=== PATIENT | female | born 1940 | race African-American/Black ===

== ENCOUNTER → 2017-11-08 | Outpatient (CLI) | payer MEDICARE, OTHER ==
--- NOTE | 2017-11-08 09:30 | US ---
EXAMINATION TYPE: US kidneys/renal and bladder DATE OF EXAM: 11/08/2017 COMPARISON: Ultrasound 12/15/[address] 06/09/2016 CLINICAL HISTORY: 77-year-old female R31.0 GROSS HEMATURIA. TECHNIQUE: Multiple sonographic images of the kidneys and bladder are obtained. FINDINGS: Right Kidney: 8.7 x 3.8 x 4.2 cm without hydronephrosis. There is a small 8 mm upper pole cortical c yst some internal low-level echoes most likely artifactual. Finding was seen back on the 06/09/2016 CT . Left Kidney: 7.8 x 3.4 x 4.2cm without hydronephrosis. There is a rounded 2.4 x 2.1 x 2.3 cm solid ar ea at the mid pole most likely representing a dromedary hump. A short interval three-month follow-up can be performed. Bladder: No gross abnormality. No significant post void residual bladder volume. Post Void Residual Volume: 1.5 mL Bilateral Jets seen: Yes IMPRESSION: 1. No hydronephrosis. 2. A tiny 8mm upper pole cortical cyst on the right. 3. Rounded 2.4 cm solid area at the left midpole. This is suspected to represent a dromedary hump rat her than a mass. A short interval three-month follow-up ultrasound can be performed. 4. No urinary retention.
== END | disposition home or self-care (01) ==
LOC: RADUSWWP 08:35
PROVIDERS: ATTEND Family Medicine
DX: R31.0 Gross hematuria (principal); Z88.1 Allergy status to other antibiotic agents
CPT/HCPCS: 76770

== ENCOUNTER 2021-05-20 17:17 | Inpatient (IN) | payer MEDICARE ==
--- NOTE | 2021-05-20 17:40 | ED ---
General Adult HPI - General Chief complaint: Neuro Symptoms/Deficit Stated complaint: AMS Time Seen by Provider: 05/20/21 17:19 Source: EMS, RN notes reviewed Mode of arrival: EMS - History of Present Illness Initial comments: Dictation was produced using [employer] dictation software. please excuse any grammatical, word or spelling errors. Chief Complaint: 80-year-old female with past medical history of stroke, COPD dementia presents emergency department for altered mental status. She was transferred from [facility] History of Present Illness: Patient is a 80-year-old female she was transferred from [facility] for hemoglobin of 3.[address] showing acute versus subacute left MCA infarct. Patient was initially seen at [facility] for altered m ental status. She is found have a hemoglobin of 3.7.. Patient allegedly has history of anemia. Patient unable to provide history of present illness at this time. Transferred documentation was reviewed. She also had a computed tomography scan of the head showing acute left watershed infarct. Patient has allegedly been altered for several weeks. She only received a 500 mL bolus at [facility]. Patient unable to provide HPI at this time. According to ER doctor at [facility] patient has been altered for several days. The ROS documented in this emergency department record has been reviewed and confirmed by me. Those systems with pertinent positive or negative responses have been documented in the HPI. All other systems are other negative and/or noncontributory. PHYSICAL EXAM: General Impression: Alert and oriented x1/4, not in acute distress HEENT: Normocephalic atraumatic, extra-ocular movements intact, pupils equal and reactive to light bilaterally, dry mucous membranes. Cardiovascular: Heart regular rate and rhythm Chest: no retractions, no tachypnea Abdomen: abdomen soft, non-tender, non-distended, no organomegaly Musculoskeletal: Pulses present and equal in all extremities, no peripheral edema Motor: no focal deficits noted Neurological: CN II-XII grossly intact, last paralysis of the right upper extremity, aphasic Skin: Intact with no visualized rashes Psych: Normal affect and mood ED course: 80-year-old female transferred [facility] for abnormal CT showing acute infarct of the left MCA territory and hemoglobin 3.2. Stool occult blood was negative. Patient had a sodium of 150. Vital signs upon arrival are within acceptable limits. Neurology on consult was contacted. Discussed patient case with Dr. Andrew Clark who requests that repeat imaging referral form. He requests that CT be reordered and CT angios the head and neck. He does not recommend providing aspirin given that her hemoglobin is 3.2. HPI from [facility] done by Dr. Mari was reviewed. Patient is allegedly at home and has been more lethargic than usual. She's been seen to be much more sleepy. Repeat labs obtained hemoglobin 3.6. Platelets normal. MCV is 62.8. Metabolic panel is within acceptable limits. CT brain and CT angios the head and neck was obtained. CT brain here in our facility showed hypoattenuation of left frontal lobe which suggests acute on chronic infarct. CT angiogram of the head and neck was obtained showing acute left ICA occlusion. Case was discussed with on-call neuro neurovascular Dr Grayson who reviewed the films recommended Plavix and Lipitor. He does not recommend aspirin administration due to low hemoglobin. Dr. Grayson does not recommend outpatient transfer at this time. Case discussed with Dr. Mello who is willing to accept patient came to the ICU. - Related Data Home Medications Medication Instructions Recorded Confirmed Aspirin 81 mg PO DAILY 03/17/14 05/20/21 HYDROcodone/APAP 10-325MG [[place] 1 tab PO Q8H PRN 01/10/15 05/20/21 10-325] Cholecalciferol [Vitamin D3 (25 125 mcg PO DAILY 06/15/15 05/20/21 Mcg = 1000 Iu)] Omeprazole [PriLOSEC] 40 mg PO HS 06/15/15 05/20/21 Atorvastatin Calcium [Lipitor] 10 mg PO HS 05/20/21 05/20/21 Citalopram Hydrobromide [CeleXA] 40 mg PO DAILY 05/20/21 05/20/21 Cyanocobalamin (Vitamin B-12) 1,000 mcg PO DAILY 05/20/21 05/20/21 [Vitamin B-12] Gabapentin 600 mg PO TID 05/20/21 05/20/21 Glycopyrrolate/Formoterol Fum 2 puff INHALATION RT-BID 05/20/21 05/20/21 [Bevespi Aerosphere Inhaler] Metoprolol Succinate [Toprol XL] 25 mg PO BID 05/20/21 05/20/21 Mirtazapine [Remeron] 15 mg PO HS 05/20/21 05/20/21 Naloxone HCl [Narcan] 4 mg NASAL ONCE PRN 05/20/21 05/20/21 Allergies Allergy/AdvReac Type Severity Reaction Status Date / Time amoxicillin [Amoxicillin] Allergy Itching Verified 05/20/21 18:33 cephalexin monohydrate Allergy Itching Verified 05/20/21 18:33 [From Keflex] codeine Allergy Itching Verified 05/20/21 18:33 Penicillins Allergy Itching Verified 05/20/21 18:33 Review of Systems ROS Statement: Those systems with pertinent positive or pertinent negative responses have been documented in the HPI. ROS Other: All systems not noted in ROS Statement are negative. Past Medical History Past Medical History: Chest Pain / Angina, COPD, GERD/Reflux, Hyperlipidemia, Hypertension, Osteoarthritis (OA) Additional Past Medical History / Comment(s): OTHER HX: hx fx pelvis, migraines , CONSTIPATED,SCIATICA, POOR CIRCULATION TO LOWER LEGS History of Any Multi-Drug Resistant Organisms: None Reported Past Surgical History: Breast Surgery Additional Past Surgical History / Comment(s): Colonoscopy,CYST REMOVED FROM LT BREAST, RT KNEE ARTHROSCOPY, LASIK EYE SX Past Anesthesia/Blood Transfusion Reactions: No Reported Reaction Additional Past Anesthesia/Blood Transfusion Reaction / Comment(s): had problem with left leg after last colonoscopy and could not walk for a few days after ( hx pelvis fx) Past Psychological History: No Psychological Hx Reported Past Alcohol Use History: Occasional Past Drug Use History: Marijuana - Past Family History Mother Family Medical History: No Reported History Additional Family Medical History / Comment(s): CARDIAC PROBLEMS Father History Unknown: Yes Additional Family Medical History / Comment(s): DURING TESTING TO FIND OUT IF HE HAD CANCER Course Vital Signs 05/20/21 05/20/21 05/20/21 17:23 18:23 19:42 Temperature 97.8 F 98.1 F Pulse Rate 82 79 75 Respiratory 18 18 16 Rate Blood Pressure 147/86 117/61 140/70 O2 Sat by Pulse 98 98 95 Oximetry 05/20/21 19:52 Temperature 97.9 F Pulse Rate 83 Respiratory 16 Rate Blood Pressure 133/70 O2 Sat by Pulse 100 Oximetry Medical Decision Making - Lab Data Result diagrams: 05/20/21 18:20 05/20/21 18:20 Lab Results 05/20/21 05/20/21 05/20/21 Range/Units 18:00 18:18 18:20 WBC 8.6 (3.8-10.6) k/uL RBC 2.33 L (3.80-5.40) m/uL Hgb 3.6 L* (11.4-16.0) gm/dL Hct 14.6 L* (34.0-46.0) % MCV 62.8 L (80.0-100.0) fL MCH 15.5 L (25.0-35.0) pg MCHC 24.7 L (31.0-37.0) g/dL RDW 20.5 H (11.5-15.5) % Plt Count 332 (150-450) k/uL MPV 11.4 Hypochromasia Marked Anisocytosis Moderate Microcytosis Marked Sodium (137-145) mmol/L Potassium (3.5-5.1) mmol/L Chloride (98-107) mmol/L Carbon Dioxide (22-30) mmol/L Anion Gap mmol/L BUN (7-17) mg/dL Creatinine (0.52-1.04) mg/dL Est GFR (CKD-EPI)AfAm (>60 ml/min/1.73 sqM) Est GFR (CKD-EPI)NonAf (>60 ml/min/1.73 sqM) Glucose (74-99) mg/dL Calcium (8.4-10.2) mg/dL Blood Type O Positive Blood Type Confirm O Positive Blood Type Recheck No Previous Record Bld Type Recheck Status CABO Indicated Antibody Screen NEGATIVE Crossmatch See Detail Spec Expiration Date 05/23/2021 - 229905/20/21 Range/Units 18:20 WBC (3.8-10.6) k/uL RBC (3.80-5.40) m/uL Hgb (11.4-16.0) gm/dL Hct (34.0-46.0) % MCV (80.0-100.0) fL MCH (25.0-35.0) pg MCHC (31.0-37.0) g/dL RDW (11.5-15.5) % Plt Count (150-450) k/uL MPV Hypochromasia Anisocytosis Microcytosis Sodium 144 (137-145) mmol/L Potassium 4.2 (3.5-5.1) mmol/L Chloride 107 (98-107) mmol/L Carbon Dioxide 34 H (22-30) mmol/L Anion Gap 3 mmol/L BUN 8 (7-17) mg/dL Creatinine 0.47 L (0.52-1.04) mg/dL Est GFR (CKD-EPI)AfAm >90 (>60 ml/min/1.73 sqM) Est GFR (CKD-EPI)NonAf >90 (>60 ml/min/1.73 sqM) Glucose 94 (74-99) mg/dL Calcium 8.2 L (8.4-10.2) mg/dL Blood Type Blood Type Confirm Blood Type Recheck Bld Type Recheck Status Antibody Screen Crossmatch Spec Expiration Date Critical Care Time Critical Care Time: Yes Total Critical Care Time: 33 Disposition Clinical Impression: Cerebrovascular accident (CVA), Anemia Disposition: ADMITTED IP TO THIS [facility] Condition: Critical Referrals: Rommel Neal MD [Primary Care Provider] - 1-2 days
[2021-05-20 18:26] LABS: Anisocytosis Moderate; Hypochromasia Marked; MCH 15.5 pg (25.0-35.0); MCHC 24.7 g/dL (31.0-37.0); MCV 62.8 fL (80.0-100.0); Mean Platelet Volume 11.4; Microcytosis Marked; Platelet Count 332 k/uL (150-450); RBC 2.33 m/uL (3.80-5.40); RDW 20.5 % (11.5-15.5); WBC 8.6 k/uL (3.8-10.6)
[2021-05-20 18:36] LABS: HGB 3.6 gm/dL (11.4-16.0)
[2021-05-20 18:37] LABS: HCT 14.6 % (34.0-46.0)
[2021-05-20 18:38] LABS: African American GFR (CKD) >90 (>60 ml/min/1.73 sqM); Anion Gap 3 mmol/L; Blood Urea Nitrogen 8 mg/dL (7-17); Calcium 8.2 mg/dL (8.4-10.2); Carbon Dioxide 34 mmol/L (22-30); Chloride 107 mmol/L (98-107); Glucose 94 mg/dL (74-99); Non-African American GFR(CKD) >90 (>60 ml/min/1.73 sqM); Potassium 4.2 mmol/L (3.5-5.1); Sodium 144 mmol/L (137-145)
--- NOTE | 2021-05-20 19:10 | CT ---
EXAM: CT brain wo con CLINICAL HISTORY: Acute stroke. COMPARISON: None TECHNIQUE: Contiguous axial noncontrast images of the brain were obtained. Coronal and sagittal refor mats were generated and reviewed. Automated dose control was used for this exam. FINDINGS: There is moderate hypoattenuating area within the left frontal lobe and less pronounced in the left p arieto-occipital lobe. There is no acute intracranial hemorrhage, midline shift or hydrocephalus. The re is moderate white matter disease and mild parenchymal volume loss. Ventricular size and configuration is within normal limits for degree of parenchymal volume. The paranasal sinuses are clear. The mastoid air cells are clear. No evidence for calvarial fracture. IMPRESSION: Moderate hypoattenuating area in the left frontal lobe and less pronounced in the left parieto-occipi samuel lobe. Findings are concerning for acute infarct in the appropriate clinical setting. Acute on chr onic infarct cannot be excluded due to absence of prior study for comparison. No evidence of intracranial hemorrhage. Findings were reported to the caring physician by me at time of dictation.
--- NOTE | 2021-05-20 19:18 | CT ---
EXAMINATION TYPE: CT angio head neck DATE OF EXAM: 05/20/2021 HISTORY: Patient poor historian. COMPARISON: None available. CT DLP: 1278.3 mGycm. Automated Exposure Control for Dose Reduction was Utilized. TECHNIQUE: CTA scan of the neck is performed with IV Contrast, patient injected with 60 mL of Isovue 370, axial images are obtained, coronal and sagittal reformatted images are reviewed. Three-D recons tructed images are created on an independent workstation and reviewed. FINDINGS: There is moderate atherosclerosis of the aortic arch and carotid bulbs. Otherwise normal three-vessel branching of the aorta. There is occlusion of the left internal carotid artery from the origin throu gh the terminus. There is 50-70% stenosis of the right proximal ICA. The remainder of the ICA and bilateral vertebral arteries are patent. No evidence of aneurysm. There is no evidence of high-grade stenosis, dissection or aneurysm in the intracranial internal aiken tid arteries, anterior, middle and posterior cerebral arteries as well as in the imaged vertebral and basilar arteries. The communicating arteries are unremarkable. IMPRESSION: Occlusion of the left ICA. Moderate to severe stenosis of the right proximal ICA. No thrombosis or significant stenosis of the intracranial arteries. Findings reported to caring physician by me at time of dictation. NASCET criteria was used in interpretation of this exam?
[2021-05-20] MEDS ORDERED: NALOXONE 0.4 MG/ML 1 ML VIAL IV PRN (19:57)
[2021-05-20] MEDS ORDERED: ATORVASTATIN 40 MG TAB PO STA (20:08)
[2021-05-20] MEDS ORDERED: CLOPIDOGREL 75 MG TAB PO STA (20:08)
--- NOTE | 2021-05-20 23:28 | P.HPIM ---
History of Present Illness H&P Date: 05/20/21 The patient is a 80-year-old female with a PMH of dementia, history of CVA, hypertension, and COPD who was sent in as a transfer from [facility] where she had presented earlier tonight accompanied by her daughter due to altered mental status. The history obtained from the daughter at the bedside since the patient is answering only basic questions with 1-2 word answers. The daughter reports that she initially noticed her mother was not quite herself yesterday night when she would not eat or drink as usual and became very quiet. She reports that her mother was then far less interactive throughout the day today and appeared to be lethargic and only wanting to sleep. She further reported that her mother has not been using her right arm and legs appropriately over the past 1 month, and is now unable to stand as her leg "gives out". She denied noticing the patient complain of anything else. She further denied noticing bloody or black tarry stools. The patient was not able to provide any meaningful history. Patient is only answering basic questions with yes and no answers. When asked if she was in pain or if anything was bothering her, the patient answered no. The patient lives at home with her daughter and is largely bedbound. While at [facility], the patient underwent an extensive evaluation with a CT head without contrast showing findings compatible with an acute left MCA infarct. Laboratory evaluation also revealed a hemoglobin of 3.7, MCV 57.1, fecal occult negative, sodium 150, CO2 39.7, albumin 2.7, troponin less than 0.017, WBC count 7.9, and platelets 300 with UA unremarkable. EKG had revealed sinus rhythm at 85 bpm with a prolonged QTC of 625 ms. Chest x-ray was consistent with COPD and possible underlying atelectasis. She was subsequently transferred to [facility] for neurology evaluation. CT angiogram of the head and neck again revealed the occlusion of the left ICA. Neuro retrieval specialist Dr Grayson was consulted by the ED physician. He reviewed the films and recommended Lipitor and Plavix with no aspirin due to the patient's low hemoglobin. He further recommended no TPA and transfer to medical ICU for further management. Review of systems: Pertinent positives and negatives as discussed in HPI, a complete review of sy stems was performed and all other systems are negative. Physical examination: General: non toxic, no distress, appears at stated age, frail Derm: no unusual rashes/lesions no unusual ecchymoses, warm, dry Head: atraumatic, normocephalic, symmetric Eyes: EOMI, no lid lag, anicteric sclera, pupils equal round reactive to light ENT: Nose and ears atraumatic, no thrush, no pharyngeal erythema Neck: No thyromegaly, no cervical lymphadenopathy, trachea midline, supple Mouth: no lip lesion, mucus membranes moist Cardiovascular: S1S2 reg, no murmur, positive posterior tibial pulse bilateral, no edema, capillary refill less than 2 seconds Lungs: CTA bilateral, no rhonchi, no rales , no accessory muscle use Abdominal: soft, nontender to palpation, no guarding, no appreciable organomegaly Ext: Thin extremities, unable to assess fully as patient not following all directions. muscle strength 3 out of 5 in fransisca UEs grossly with patient not moving her legs, no contractures, Neuro: CN II-XI grossly intact Psych: Lethargic, oriented only to self Assessment/plan Acute left MCA infarct -Patient not a candidate for TPA -Neurology consulted -Neuro checks -Lipitor and Plavix for now -Hold aspirin in setting of significant microcytic anemia -Fall precautions -PT consult -Speech and swallow evaluation -Permissive hypertension Severe microcytic anemia -Fecal occult negative at [facility] -Obtain anemia workup -Hematology consult -3 units of PRBCs ordered Chronic conditions: COPD -Continue with home meds DVT prophylaxis -IPCDs The patient is admitted with an anticipated greater than 2 midnight stay for evaluation of acute CVA CODE STATUS: No Code w/ instructions Discussed with: Full Code Anticipated discharge date: 3-[address]: [facility] Past Medical History Past Medical History: Chest Pain / Angina, COPD, GERD/Reflux, Hyperlipidemia, Hypertension, Osteoarthritis (OA) Additional Past Medical History / Comment(s): OTHER HX: hx fx pelvis, migraines , CONSTIPATED,SCIATICA, POOR CIRCULATION TO LOWER LEGS History of Any Multi-Drug Resistant Organisms: None Reported Past Surgical History: Breast Surgery Additional Past Surgical History / Comment(s): Colonoscopy,CYST REMOVED FROM LT BREAST, RT KNEE ARTHROSCOPY, LASIK EYE SX Past Anesthesia/Blood Transfusion Reactions: No Reported Reaction Additional Past Anesthesia/Blood Transfusion Reaction / Comment(s): had problem with left leg after last colonoscopy and could not walk for a few days after ( hx pelvis fx) Past Psychological History: No Psychological Hx Reported Past Alcohol Use History: Occasional Past Drug Use History: Marijuana - Past Family History Mother Family Medical History: No Reported History Additional Family Medical History / Comment(s): CARDIAC PROBLEMS Father History Unknown: Yes Additional Family Medical History / Comment(s): DURING TESTING TO FIND OUT IF HE HAD CANCER Medications and Allergies Home Medications Medication Instructions Recorded Confirmed Type Aspirin 81 mg PO DAILY 03/17/14 05/20/21 History HYDROcodone/APAP 10-325MG [[place] 1 tab PO Q8H PRN 01/10/15 05/20/21 History 10-325] Cholecalciferol [Vitamin D3 (25 125 mcg PO DAILY 06/15/15 05/20/21 History Mcg = 1000 Iu)] Omeprazole [PriLOSEC] 40 mg PO HS 06/15/15 05/20/21 History Atorvastatin Calcium [Lipitor] 10 mg PO HS 05/20/21 05/20/21 History Citalopram Hydrobromide [CeleXA] 40 mg PO DAILY 05/20/21 05/20/21 History Cyanocobalamin (Vitamin B-12) 1,000 mcg PO DAILY 05/20/21 05/20/21 History [Vitamin B-12] Gabapentin 600 mg PO TID 05/20/21 05/20/21 History Glycopyrrolate/Formoterol Fum 2 puff INHALATION RT-BID 05/20/21 05/20/21 History [Bevespi Aerosphere Inhaler] Metoprolol Succinate [Toprol XL] 25 mg PO BID 05/20/21 05/20/21 History Mirtazapine [Remeron] 15 mg PO HS 05/20/21 05/20/21 History Naloxone HCl [Narcan] 4 mg NASAL ONCE PRN 05/20/21 05/20/21 History Allergies Allergy/AdvReac Type Severity Reaction Status Date / Time amoxicillin [Amoxicillin] Allergy Itching Verified 05/20/21 18:33 cephalexin monohydrate Allergy Itching Verified 05/20/21 18:33 [From Keflex] codeine Allergy Itching Verified 05/20/21 18:33 Penicillins Allergy Itching Verified 05/20/21 18:33 Physical Exam Vitals: Vital Signs Temp Pulse Resp BP Pulse Ox 05/20/21 20:22 97.9 F 79 16 135/70 100 05/20/21 20:06 84 16 136/76 100 05/20/21 19:52 97.9 F 83 16 133/70 100 05/20/21 19:42 98.1 F 75 16 140/70 95 05/20/21 18:23 79 18 117/61 98 05/20/21 17:23 97.8 F 82 18 147/86 98 Intake and Output 05/20/21 05/20/21 05/20/21 06:59 14:59 22:59 Intake Total 0 Balance 0 Intake: Blood Product 0 Rc As-1 Unit 0 [id number] Other: Weight 34.246 kg Results CBC & Chem 7: 05/20/21 18:20 05/20/21 18:20 Labs: Abnormal Lab Results - Last 24 Hours (Table) 05/20/21 05/20/21 05/20/21 Range/Units 18:00 18:20 18:20 RBC 2.33 L (3.80-5.40) m/uL Hgb 3.6 L* (11.4-16.0) gm/dL Hct 14.6 L* (34.0-46.0) % MCV 62.8 L (80.0-100.0) fL MCH 15.5 L (25.0-35.0) pg MCHC 24.7 L (31.0-37.0) g/dL RDW 20.5 H (11.5-15.5) % Carbon Dioxide 34 H (22-30) mmol/L Creatinine 0.47 L (0.52-1.04) mg/dL Calcium 8.2 L (8.4-10.2) mg/dL Crossmatch See Detail
[2021-05-21] MEDS: PANTOPRAZOLE 40 MG TABLET PO SCH (07:31)
[2021-05-21 07:41] LABS: Anisocytosis Moderate; HCT 43.1 % (34.0-46.0); Hypochromasia Marked; MCH 25.1 pg (25.0-35.0); MCHC 30.9 g/dL (31.0-37.0); Mean Platelet Volume 10.6; Microcytosis Moderate; Poikilocytosis Marked; RBC 5.31 m/uL (3.80-5.40); RDW 20.7 % (11.5-15.5); WBC 13.6 k/uL (3.8-10.6)
[2021-05-21 07:49] LABS: African American GFR (CKD) >90 (>60 ml/min/1.73 sqM); Anion Gap 6 mmol/L; Blood Urea Nitrogen 8 mg/dL (7-17); Carbon Dioxide 33 mmol/L (22-30); Chloride 107 mmol/L (98-107); Glucose 97 mg/dL (74-99); Non-African American GFR(CKD) >90 (>60 ml/min/1.73 sqM); Sodium 146 mmol/L (137-145)
[2021-05-21 08:17] LABS: HGB 13.3 gm/dL (11.4-16.0)
[2021-05-21 08:18] LABS: MCV 81.2 fL (80.0-100.0)
[2021-05-21] MEDS: FORMOTEROL FUMARATE 20 MCG/2 ML NEBU INHALATION SCH ×2 (09:00→20:30)
[2021-05-21] MEDS: IPRATROPIUM 0.5 MG/2.5 ML NEBU INHALATION SCH ×4 (09:00→20:31)
[2021-05-21 09:13] LABS: Anisocytosis Moderate; Basophils # (A) 0.1 k/uL (0-0.2); Basophils % (A) 0 %; Eosinophils % (A) 0 %; HCT 43.8 % (34.0-46.0); HGB 13.6 gm/dL (11.4-16.0); Hypochromasia Marked; Lymphocytes # (A) 1.1 k/uL (1.0-4.8); Lymphocytes % (A) 8 %; MCH 24.8 pg (25.0-35.0); Mean Platelet Volume 9.9; Microcytosis Moderate; Monocytes # (A) 0.7 k/uL (0-1.0); Monocytes % (A) 5 %; Neutrophils # (A) 11.9 k/uL (1.3-7.7); Neutrophils % (A) 85 %; Platelet Count 271 k/uL (150-450); Poikilocytosis Marked; RBC 5.48 m/uL (3.80-5.40); RDW 20.7 % (11.5-15.5)
[2021-05-21 09:22] LABS: Platelet Count 283 k/uL (150-450)
--- NOTE | 2021-05-21 09:25 | CONS ---
CONSULTATION DATE OF CONSULTATION: May 21, 2021. REASON FOR CONSULTATION: Severe symptomatic anemia. HISTORY OF PRESENT ILLNESS: The patient is a 80-year-old female admitted to the hospital with right-sided CVA and severe symptomatic anemia with a hemoglobin of 3.6 g/dL. Most of the history was obtained from the patient's chart as there is no family available at the bedside. She still remains in the ER at this time. Apparently, her daughter noticed her mother to be quite confused yesterday, somewhat lethargic and hence she brought her to the emergency room. Subsequently, she did have a CT of the head without contrast and findings were compatible with acute left MCA infarct. In the ER, she was noted to have labs with a hemoglobin of 3.6 g/dL and MCV at 57 consistent with severe microcytic hypochromic anemia. The patient is extremely confused. As per the nursing staff, there was no evidence of active bleeding. Currently the patient denies any abdominal pain. No nausea, no vomiting. No rectal bleeding or melena. On review of her records, she did have an EGD and an attempted colonoscopy by Dr. Burnett in 2013 followed by a barium enema, which revealed some gastritis and extensive sigmoid diverticulosis and the scope could not be advanced beyond the sigmoid colon and subsequent barium enema was incomplete which once again revealed sigmoid diverticulosis. PAST MEDICAL HISTORY: Her past medical history is significant for hypertension, hyperlipidemia, degenerative joint disease, gastroesophageal reflux disease, COPD, iron deficiency anemia. PAST SURGICAL HISTORY: Attempted colonoscopy and EGD in [address] Burnett, left breast surgery, right knee arthroscopy. SOCIAL HISTORY: No smoking. No alcohol use. FAMILY HISTORY: Mother had some cardiac problems and father had some kind of cancer. MEDICATIONS: Medications at home aspirin, [place], vitamin D3, Prilosec, Lipitor, Celexa, vitamin B12, gabapentin, Remeron, Narcan, Toprol. ALLERGIES: AMOXICILLIN, KEFLEX, CODEINE AND PENICILLIN. REVIEW OF SYSTEMS: Review of systems could not be obtained as patient is extremely confused. PHYSICAL EXAMINATION: She appears comfortable in no apparent distress. Vital signs are stable. Blood pressure is 135/70, pulse is 79, temperature 97.9. HEENT examination unremarkable. Conjunctivae pale. Sclerae anicteric. Oral cavity no lesions. NECK: No JVD or lymph node enlargement. CHEST: Decreased breath sounds bilaterally. HEART is regular rate and rhythm. ABDOMEN was soft. It was nontender, nondistended. Bowel sounds are positive. EXTREMITIES: No pedal edema. NEURO: Right-sided weakness. She is awake, alert to name but not to place or time. LABS: Labs done at the time of admission to the hospital: WBC is 8.6, hemoglobin 3.6, platelets 332, MCV is 62. She received 3 units of PRBC transfusion and repeat hemoglobin is 13.3 g/dL. BUN is 8, creatinine 0.47. IMPRESSION: 1. Severe symptomatic hypochromic microcytic anemia with a hemoglobin of 3.6, consistent with iron deficiency anemia most likely secondary to occult gastrointestinal blood loss. Clinically there is no evidence of active ongoing bleeding. 2. New onset right-sided cerebrovascular accident. CT of the head showing left MCA infarct. 3. Altered mental status. 4. History of hypertension and hyperlipidemia. 5. History of gastroesophageal reflux disease. RECOMMENDATIONS: 1. Agree with PRBC transfusion. 2. Continue with Protonix 40 mg daily. 3. Since there is no evidence of active bleeding and new onset CVA, she can continue with aspirin and Plavix for now. 4. She is not a candidate for any endoscopic intervention at the present time given her pulmonary status and once this is optimized, we will consider endoscopic intervention in the next few days. 5. No family available at the bedside to discuss the plan. 6. We will follow with you closely. Thank you for this consultation. MMELICEOL / LURDESN: [id number] /
[2021-05-21 10:06] LABS: Polychromasia Present
[2021-05-21] MEDS: CLOPIDOGREL 75 MG TAB PO SCH (10:18)
--- NOTE | 2021-05-21 10:56 | P.PN ---
Subjective Progress Note Date: 05/21/21 Pt is still quite aphasic, but follows commands, and appears to understand what I'm saying. CBC repeated today and returned at 13.1, re-tested and returned again at 13. Initial lab value of 3.2 was likely lab error. Pt did receive 3U PRBCs. Started on ASA, which was previously held due to anemia. Now on ASA, Plavix, Statin appropriately. Objective - Vital Signs Vital signs: Vital Signs Temp 98.0 F 05/21/21 04:55 Pulse 87 05/21/21 10:00 Resp 20 05/21/21 10:00 BP 163/85 05/21/21 10:00 Pulse Ox 99 05/21/21 10:00 Intake & Output 05/20/21 05/21/21 05/21/21 18:59 06:59 18:59 Intake Total 930 Balance 930 Weight 34.246 kg Intake: Blood Product 930 Rc As-1 Unit 310 [id number] Rc As-1 Unit 310 [id number] Rc As-1 Unit 310 [id number] - Exam Gen: awake, cooperative with exam HEENT: normocephalic, atraumatic, good hearing acuity, moist mucous membranes Resp: good air exchange, breathing comfortably with no accessory muscle use CVS: good distal perfusion x 4, GI: soft, NTTP, ND : no SPT, no CVAT, coppola catheter not present MSK: no pitting edema, no clubbing Neuro: expressive aphasia, diminished UE/LE strength on R> L side - Labs CBC & Chem 7: 05/21/21 08:32 05/21/21 07:20 Labs: Abnormal Lab Results - Last 24 Hours (Table) 05/20/21 05/20/21 05/20/21 Range/Units 18:00 18:20 18:20 WBC (3.8-10.6) k/uL RBC 2.33 L (3.80-5.40) m/uL Hgb 3.6 L* (11.4-16.0) gm/dL Hct 14.6 L* (34.0-46.0) % MCV 62.8 L (80.0-100.0) fL MCH 15.5 L (25.0-35.0) pg MCHC 24.7 L (31.0-37.0) g/dL RDW 20.5 H (11.5-15.5) % Neutrophils # (1.3-7.7) k/uL Sodium (137-145) mmol/L Carbon Dioxide 34 H (22-30) mmol/L Creatinine 0.47 L (0.52-1.04) mg/dL Calcium 8.2 L (8.4-10.2) mg/dL Crossmatch See Detail 05/21/21 05/21/21 05/21/21 Range/Units 07:20 07:20 08:32 WBC 13.6 H 14.0 H (3.8-10.6) k/uL RBC 5.48 H (3.80-5.40) m/uL Hgb (11.4-16.0) gm/dL Hct (34.0-46.0) % MCV (80.0-100.0) fL MCH 24.8 L (25.0-35.0) pg MCHC 30.9 L (31.0-37.0) g/dL RDW 20.7 H 20.7 H (11.5-15.5) % Neutrophils # 11.9 H (1.3-7.7) k/uL Sodium 146 H (137-145) mmol/L Carbon Dioxide 33 H (22-30) mmol/L Creatinine 0.40 L (0.52-1.04) mg/dL Calcium (8.4-10.2) mg/dL Crossmatch Assessment and Plan Assessment: Acute left MCA infarct -Patient not a candidate for TPA -Neurology consulted -Neuro checks -ASA, Lipitor and Plavix -Fall precautions -PT/OT consult -MR Brain pending -Echo pending -Speech and swallow evaluation -Permissive hypertension Microcytic anemia which was overestimated due to lab error, s/p 3U PRBC transfusion, now in normal range -Fecal occult negative at [facility] -Obtain anemia workup, pendig -Hematology consulted -GI consulted Chronic conditions: COPD -Continue with home meds DVT prophylaxis -IPCDs The patient is admitted with an anticipated greater than 2 midnight stay for evaluation of acute CVA CODE STATUS: No Code w/ instructions Anticipated discharge date: 3-[address]: [facility]
--- NOTE | 2021-05-21 11:17 | P.CONS ---
History of Present Illness - Reason for Consult Consult date: 05/21/21 anemia Requesting physician: Michael Alarcon - Chief Complaint Altered mentation - History of Present Illness Ms. Streeter is a 80 yo female with multiple comorbidities who is here for altered mentation from [facility]. She presented there for altered mentation. She was transferred here where she had a CT of the head and CT angiogram which confirmed a stroke. CBC here revealed normal WBC and platelets however hemoglobin of 3.6. She was transfused 3 units of blood with repeat hemoglobin 2 at 13. GI was consult it. We were also consulted. She is currently unable to follow commands, moving spontaneously. No family at bedside. Past Medical History Past Medical History: Chest Pain / Angina, COPD, GERD/Reflux, Hyperlipidemia, Hypertension, Osteoarthritis (OA) Additional Past Medical History / Comment(s): OTHER HX: hx fx pelvis, migraines , CONSTIPATED,SCIATICA, POOR CIRCULATION TO LOWER LEGS History of Any Multi-Drug Resistant Organisms: None Reported Past Surgical History: Breast Surgery Additional Past Surgical History / Comment(s): Colonoscopy,CYST REMOVED FROM LT BREAST, RT KNEE ARTHROSCOPY, LASIK EYE SX Past Anesthesia/Blood Transfusion Reactions: No Reported Reaction Additional Past Anesthesia/Blood Transfusion Reaction / Comm: had problem with left leg after last colonoscopy and could not walk for a few days after ( hx pelvis fx) Past Psychological History: No Psychological Hx Reported Past Alcohol Use History: Occasional Past Drug Use History: Marijuana - Past Family History Mother Family Medical History: No Reported History Additional Family Medical History / Comment(s): CARDIAC PROBLEMS Father History Unknown: Yes Additional Family Medical History / Comment(s): DURING TESTING TO FIND OUT IF HE HAD CANCER Medications and Allergies Home Medications Medication Instructions Recorded Confirmed Type Aspirin 81 mg PO DAILY 03/17/14 05/20/21 History HYDROcodone/APAP 10-325MG [Ramey 1 tab PO Q8H PRN 01/10/15 05/20/21 History 10-325] Cholecalciferol [Vitamin D3 (25 125 mcg PO DAILY 06/15/15 05/20/21 History Mcg = 1000 Iu)] Omeprazole [PriLOSEC] 40 mg PO HS 06/15/15 05/20/21 History Atorvastatin Calcium [Lipitor] 10 mg PO HS 05/20/21 05/20/21 History Citalopram Hydrobromide [CeleXA] 40 mg PO DAILY 05/20/21 05/20/21 History Cyanocobalamin (Vitamin B-12) 1,000 mcg PO DAILY 05/20/21 05/20/21 History [Vitamin B-12] Gabapentin 600 mg PO TID 05/20/21 05/20/21 History Glycopyrrolate/Formoterol Fum 2 puff INHALATION RT-BID 05/20/21 05/20/21 History [Bevespi Aerosphere Inhaler] Metoprolol Succinate [Toprol XL] 25 mg PO BID 05/20/21 05/20/21 History Mirtazapine [Remeron] 15 mg PO HS 05/20/21 05/20/21 History Naloxone HCl [Narcan] 4 mg NASAL ONCE PRN 05/20/21 05/20/21 History Allergies Allergy/AdvReac Type Severity Reaction Status Date / Time amoxicillin [Amoxicillin] Allergy Itching Verified 05/20/21 18:33 cephalexin monohydrate Allergy Itching Verified 05/20/21 18:33 [From Keflex] codeine Allergy Itching Verified 05/20/21 18:33 Penicillins Allergy Itching Verified 05/20/21 18:33 Physical Exam Vitals: Vital Signs Temp Pulse Resp BP Pulse Ox 05/21/21 10:00 87 20 163/85 99 05/21/21 09:07 86 23 169/95 100 05/21/21 08:00 87 23 162/103 100 05/21/21 06:21 82 16 161/104 98 05/21/21 05:30 82 16 162/95 100 05/21/21 04:55 98.0 F 76 16 173/96 05/21/21 04:00 77 16 162/100 100 05/21/21 03:08 77 16 164/85 100 05/21/21 02:26 98.3 F 76 16 172/106 97 05/21/21 01:56 98.5 F 79 16 172/84 99 05/21/21 01:46 98.0 F 76 16 160/89 100 05/21/21 01:24 97.9 F 75 16 157/91 100 05/21/21 00:27 79 16 171/89 100 05/20/21 23:22 98.5 F 79 18 165/85 100 05/20/21 22:52 97.7 F 80 16 161/93 100 05/20/21 22:42 97.3 F L 79 16 162/84 100 05/20/21 22:30 97.5 F L 79 16 155/82 100 05/20/21 21:33 90 16 148/76 100 05/20/21 20:22 97.9 F 79 16 135/70 100 05/20/21 20:06 84 16 136/76 100 05/20/21 19:52 97.9 F 83 16 133/70 100 05/20/21 19:42 98.1 F 75 16 140/70 95 05/20/21 18:23 79 18 117/61 98 05/20/21 17:23 97.8 F 82 18 147/86 98 Intake and Output 05/20/21 05/21/21 05/21/21 22:59 06:59 14:59 Intake Total 310 620 Balance 310 620 Intake: Blood Product 310 620 Rc As-1 Unit 0 310 [id number] Rc As-1 Unit 310 [id number] Rc As-1 Unit 310 [id number] Other: Weight 34.246 kg Gen.: No acute distress. HEENT: No scleral icterus. Neck: Supple. Lungs: No respiratory distress. Heart: Regular rate. Abdomen: Diffuse tender with guarding. Difficult exam. MSK: No obvious of her extremity deformities. Neuro: Unable to follow commands. Alert but not oriented at all. Skin: No jaundice. Results CBC & Chem 7: 05/21/21 08:32 05/21/21 07:20 Labs: Abnormal Lab Results - Last 24 Hours (Table) 05/20/21 05/20/21 05/20/21 Range/Units 18:00 18:20 18:20 WBC (3.8-10.6) k/uL RBC 2.33 L (3.80-5.40) m/uL Hgb 3.6 L* (11.4-16.0) gm/dL Hct 14.6 L* (34.0-46.0) % MCV 62.8 L (80.0-100.0) fL MCH 15.5 L (25.0-35.0) pg MCHC 24.7 L (31.0-37.0) g/dL RDW 20.5 H (11.5-15.5) % Neutrophils # (1.3-7.7) k/uL Sodium (137-145) mmol/L Carbon Dioxide 34 H (22-30) mmol/L Creatinine 0.47 L (0.52-1.04) mg/dL Calcium 8.2 L (8.4-10.2) mg/dL Crossmatch See Detail 05/21/21 05/21/21 05/21/21 Range/Units 07:20 07:20 08:32 WBC 13.6 H 14.0 H (3.8-10.6) k/uL RBC 5.48 H (3.80-5.40) m/uL Hgb (11.4-16.0) gm/dL Hct (34.0-46.0) % MCV (80.0-100.0) fL MCH 24.8 L (25.0-35.0) pg MCHC 30.9 L (31.0-37.0) g/dL RDW 20.7 H 20.7 H (11.5-15.5) % Neutrophils # 11.9 H (1.3-7.7) k/uL Sodium 146 H (137-145) mmol/L Carbon Dioxide 33 H (22-30) mmol/L Creatinine 0.40 L (0.52-1.04) mg/dL Calcium (8.4-10.2) mg/dL Crossmatch CT Scan - head: report reviewed Assessment and Plan Assessment: 1. Anemia, microcytic 2. Altered mentation due to stroke Plan: Mrs. Streeter is a 80-year-old female who is here for altered mentation due to stroke. CBC revealed hemoglobin of 3.6 with normal WBC and platelets. Microcytic. Abdominal guarding and tenderness on exam although exam very limited and difficult. Hemoglobin improved to 13 after 3 units of blood only. It's unclear why she had such a dramatic improvement in her hemoglobin with very few units of blood. If her hemoglobin truly was 3.6 his and I would expect 3 units to increase it to about 7 at most. We'll proceed with anemia workup. Acute drop in hemoglobin could've contributed to her stroke. GI on board. We'll supplement iron, B12, folate as needed and rule out other intervening factors that could be playing a role. Continue supportive transfusion as needed to maintain hemoglobin above 7. Discussed with the nursing staff.
[2021-05-21] MEDS: ASPIRIN 81 MG PO SCH (11:49)
[2021-05-21 12:02] LABS: ALT 8 U/L (4-34); AST 26 U/L (14-36); Albumin 3.3 g/dL (3.5-5.0); Alkaline Phosphatase 110 U/L (38-126); LDH 607 U/L (313-618); Total Bilirubin 1.5 mg/dL (0.2-1.3); Total Protein 6.2 g/dL (6.3-8.2)
[2021-05-21 12:25] LABS: Reticulocyte % 1.7 % (0.5-2.0)
[2021-05-21 13:04] LABS: % Iron Saturation 95.92 (12.00-45.00); Ferritin 11.4 ng/mL (10.0-291.0); Iron 353 ug/dL (50-170); Total Iron Binding Capacity 368 ug/dL (228-460)
--- NOTE | 2021-05-21 16:02 | MR ---
EXAMINATION TYPE: MR brain wo/w con DATE OF EXAM: 05/21/2021 COMPARISON: 06/09/2010 HISTORY: CVA CONTRAST: Standard multiplanar, multisequence MRI departmental protocol utilizing 3.5 mL intravenous Gadavist g adolinium contrast. On the diffusion images there is a 6 x 4 cm area of increased jaquez-white matter signal in the left po sterior frontal lobe. This is consistent with an acute infarct. There is some effacement of the sulci . There is no midline shift. There is no sign of intracranial hemorrhage. There is also cortical 2.5 cm area of increased signal on the diffusion images left posterior parietal lobe. There is slight inc reased signal in the cortex left posterior occipital lobe. Ventricles have normal size. There is some patchy increased signal in the brainstem in the rm on th e FLAIR and T2 images bilaterally. There is patchy increased signal in the periventricular white delisa er with coalescent areas that measure up to 1.5 cm in thickness. The contrast images show no patholog ic enhancement. There is normal enhancement of the venous sinuses. There is a 3 x 2.5 cm area of increased signal on the FLAIR images left posterior temporal lobe that is consistent with old infarct. There is some mild thinning of the corpus callosum. Sella turcica appears normal. IMPRESSION: Large acute left posterior frontal lobe cortical infarct. There is a small acute infarct left parieta l lobe and probably left occipital lobe at the convexity. There is evidence of old infarct in the left posterior temporal lobe. There is extensive white matter changes consistent with chronic small vessel ischemia. Demyelinating disease not excluded. Multiple infarcts in the cortex as above appear new compared to old MR scan of 06/09/2010.
--- NOTE | 2021-05-21 16:25 | P.CNNES ---
History of Present Illness Consult date: 05/21/21 Requesting physician: Claudio Graff Reason for Consult: Abnormal computed tomography scan History of Present Illness: This is a tele-neurology consultation performed on this patient on 05/21/2021. Patient is a 80-year-old female came to the hospital by ambulance yesterday 05/20/2021 at 5:15 PM transferred from [facility] for abnormal computed tomography scan showing acute infarct in the left MCA territory and hemoglobin 3.2. Stool occult blood was negative. Patient's sodium was 150. It was reported in the [facility] by family that patient was more lethargic than usual she has been much more sleepy. Patient has severe global aphasia, therefore not able to provide any history. According to EMS flow sheet they were called because of patient's inability to speak. Symptoms started the day before around 5 PM and patient's daughter had her brought in today for evaluation. Patient was found to have an occlusion causing dysphasia along with left arm paralysis. Patient is alert but appeared frustrated when asking questions due to inability to speak, with her being alert to the dysphasia. Patient does have severe anemia with hemoglobin of 3 requiring transfusion.. Vital signs on arrival blood pressure 147/86 pulse rate 82 temperature 97.8. Most recent blood pressure 169/95. Patient's blood tests on arrival shows WBC 8.6 hemoglobin 3.6 and platelets 332. Electrolytes are normal, BUN 8, creatinine 0.47. After transfusion the blood has gone up to hemoglobin 13.3. Patient's last hemoglobin A1c 4.5 on 01/05/2020. Iron is low 28 with normal TIBC 317. TFTs normal on 03/04/2020. Computed tomography scan of the head showed moderate hypoattenuating area in the left frontal lobe and less pronounced in the left parieto-occipital lobe. Findings are concerning for an acute infarct in the appropriate clinical setting. Acute on chronic infarct cannot be excluded due to absence of prior studies for comparison. No intracranial hemorrhage. CTA of head and neck revealed occlusion of left ICA. Moderate to severe stenosis of the right proximal ICA. No thrombosis or significant stenosis of the intracranial arteries. Patient's home medications include aspirin 81 mg, Brainerd 10, omeprazole 40 mg, vitamin D, metoprolol 25 mg twice a day gabapentin 600 mg 3 times a day, B12, Remeron 15 mg, Celexa 40 mg, Lipitor 10 mg. ED staff has discussed case with Dr. Clark, who recommended no aspirin, to repeat computed tomography scan of the head, and CTA which were done as above. ED further discussed case with stroke neurologist Dr. Grayson, who recommended Plavix and Lipitor and no further intervention. Patient continues to be globally aphasic. Review of Systems Due to severe aphasia. ROS unobtainable: due to mental status Past Medical History Past Medical History: Chest Pain / Angina, COPD, GERD/Reflux, Hyperlipidemia, Hypertension, Osteoarthritis (OA) Additional Past Medical History / Comment(s): OTHER HX: hx fx pelvis, migraines , CONSTIPATED,SCIATICA, POOR CIRCULATION TO LOWER LEGS History of Any Multi-Drug Resistant Organisms: None Reported Past Surgical History: Breast Surgery Additional Past Surgical History / Comment(s): Colonoscopy,CYST REMOVED FROM LT BREAST, RT KNEE ARTHROSCOPY, LASIK EYE SX Past Anesthesia/Blood Transfusion Reactions: No Reported Reaction Additional Past Anesthesia/Blood Transfusion Reaction / Comment(s): had problem with left leg after last colonoscopy and could not walk for a few days after ( hx pelvis fx) Past Psychological History: No Psychological Hx Reported Past Alcohol Use History: Occasional Past Drug Use History: Marijuana - Past Family History Mother Family Medical History: No Reported History Additional Family Medical History / Comment(s): CARDIAC PROBLEMS Father History Unknown: Yes Additional Family Medical History / Comment(s): DURING TESTING TO FIND OUT IF HE HAD CANCER Medications and Allergies Home Medications Medication Instructions Recorded Confirmed Type Aspirin 81 mg PO DAILY 03/17/14 05/20/21 History HYDROcodone/APAP 10-325MG [Brainerd 1 tab PO Q8H PRN 01/10/15 05/20/21 History 10-325] Cholecalciferol [Vitamin D3 (25 125 mcg PO DAILY 06/15/15 05/20/21 History Mcg = 1000 Iu)] Atorvastatin Calcium [Lipitor] 10 mg PO HS 05/20/21 05/20/21 History Citalopram Hydrobromide [CeleXA] 40 mg PO DAILY 05/20/21 05/20/21 History Cyanocobalamin (Vitamin B-12) 1,000 mcg PO DAILY 05/20/21 05/20/21 History [Vitamin B-12] Gabapentin 600 mg PO TID 05/20/21 05/20/21 History Glycopyrrolate/Formoterol Fum 2 puff INHALATION RT-BID 05/20/21 05/20/21 History [Bevespi Aerosphere Inhaler] Metoprolol Succinate [Toprol XL] 25 mg PO BID 05/20/21 05/20/21 History Mirtazapine [Remeron] 15 mg PO HS 05/20/21 05/20/21 History Naloxone HCl [Narcan] 4 mg NASAL ONCE PRN 05/20/21 05/20/21 History Omeprazole 40 mg PO DAILY 05/21/21 05/21/21 History Allergies Allergy/AdvReac Type Severity Reaction Status Date / Time amoxicillin [Amoxicillin] Allergy Itching Verified 05/20/21 18:33 cephalexin monohydrate Allergy Itching Verified 05/20/21 18:33 [From Keflex] codeine Allergy Itching Verified 05/20/21 18:33 Penicillins Allergy Itching Verified 05/20/21 18:33 Physical Examination - Vital Signs Vital Signs: Vital Signs Temp Pulse Resp BP Pulse Ox 05/21/21 09:07 86 23 169/95 100 05/21/21 08:00 87 23 162/103 100 05/21/21 06:21 82 16 161/104 98 05/21/21 05:30 82 16 162/95 100 05/21/21 04:55 98.0 F 76 16 173/96 05/21/21 04:00 77 16 162/100 100 05/21/21 03:08 77 16 164/85 100 05/21/21 02:26 98.3 F 76 16 172/106 97 05/21/21 01:56 98.5 F 79 16 172/84 99 05/21/21 01:46 98.0 F 76 16 160/89 100 05/21/21 01:24 97.9 F 75 16 157/91 100 05/21/21 00:27 79 16 171/89 100 05/20/21 23:22 98.5 F 79 18 165/85 100 05/20/21 22:52 97.7 F 80 16 161/93 100 05/20/21 22:42 97.3 F L 79 16 162/84 100 05/20/21 22:30 97.5 F L 79 16 155/82 100 05/20/21 21:33 90 16 148/76 100 05/20/21 20:22 97.9 F 79 16 135/70 100 05/20/21 20:06 84 16 136/76 100 05/20/21 19:52 97.9 F 83 16 133/70 100 05/20/21 19:42 98.1 F 75 16 140/70 95 05/20/21 18:23 79 18 117/61 98 05/20/21 17:23 97.8 F 82 18 147/86 98 Intake and Output 05/20/21 05/21/21 05/21/21 22:59 06:59 14:59 Intake Total 310 620 Balance 310 620 Intake: Blood Product 310 620 Rc As-1 Unit 0 310 [id number] Rc As-1 Unit 310 [id number] Rc As-1 Unit 310 [id number] Other: Weight 34.246 kg Patient is an elderly Afro-[place] female, in no acute distress. Patient is alert awake. Patient has global aphasia. Patient is nonfluent. Cannot name any object presented pen, eyeglasses or the knuckles. Cannot repeat or follow 1 step direction. Attention, concentration is significantly impaired, and fund of knowledge cannot be assessed. Patient only able to say certain words like "damn", "Ya". Patient did say some spontaneous sentences like "it's not good enough". She said multiple times "I got to go home". On cranial examination, pupils are round and equal. Patient has very prominent arcus senilis and her iris is very dark, therefore cannot see pupils. She had a cataract surgery. She has somewhat left gaze preference. She has some right visual neglect. Her extraocular muscles are intact, although has preference to the left but does bring her gaze to the right when chasing the target. Face is symmetric, did not protrude her tongue. Palatal elevation and sensation cannot be checked. Her hearing and shoulder shrug normal, facial sensation cannot be assessed. On muscle strength testing, there is a right pronator drift and the strength is difficult to assess with lack of cooperation. Her right label stitcher is 3-4 whereas left is 5. Biceps is weaker on the right. Her ankle dorsiflexion is equal. Hip flexion was equal, as she was holding the legs off the bed equally bilaterally. Deep tendon reflexes are symmetric, 2 at the biceps, 1 brachioradialis, 2 at the knees and ankles and plantars downgoing. Sensory to touch is difficult to assess. Cerebellar function could not be tested although appears somewhat ataxic on the right. Tone of muscles is normal whereas bulk of muscles is decreased. Appears emaciated. Gait not checked. On general examination, there is no carotid bruit or murmur, S1-S2 audible. Abdomen is soft nontender. Chest is clear. Peripheral pulses are present. No peripheral edema. Results - Laboratory Findings CBC and BMP: 05/21/21 08:32 05/21/21 07:20 Abnormal Lab Findings: Abnormal Labs 05/20/21 05/20/21 05/20/21 18:00 18:20 18:20 WBC RBC 2.33 L Hgb 3.6 L* Hct 14.6 L* MCV 62.8 L MCH 15.5 L MCHC 24.7 L RDW 20.5 H Sodium Carbon Dioxide 34 H Creatinine 0.47 L Calcium 8.2 L Crossmatch See Detail 05/21/21 05/21/21 05/21/21 07:20 07:20 08:32 WBC 13.6 H 14.0 H RBC 5.48 H Hgb Hct MCV MCH 24.8 L MCHC 30.9 L RDW 20.7 H 20.7 H Sodium 146 H Carbon Dioxide 33 H Creatinine 0.40 L Calcium Crossmatch Assessment and Plan Assessment: * Acute ischemic stroke involving the left frontal lobe, (wedge-shaped), and also involving left posterior parietal region, and superior parasagittal region, somewhat in watershed territory. Patient has presented with global aphasia and mild right hemiparesis. 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 * Right ICA stenosis, moderate to severe degree per CTA. * Severe anemia, with hemoglobin 3.6, unclear etiology. * Coronary artery disease is very * COPD * Hypertension * Hyperlipidemia * Osteoarthritis Plan: * MRI of the brain performed today shows large acute left posterior frontal lobe cortical infarct. There is small acute infarct left parietal lobe and probably left occipital lobe in the convexity. There is evidence of old infarct in the left posterior temporal lobe. There is extensive white matter changes consistent with chronic small vessel ischemia. Demyelinating disease not excluded. Multiple infarcts in the cortex, new compared to old MRI scan of 06/09/2010. * Suggest vascular surgical consultation for her left ICA occlusion and moderate to severe stenosis right side. * Patient has been seen by hematology and GI. * Her last hemoglobin A1c 4.5 on 01/05/2020. Recheck A1c and lipid panel. * Continue Plavix 75 mg daily. * We will follow.
--- NOTE | 2021-05-21 16:28 | XR ---
EXAMINATION TYPE: XR chest 1V portable DATE OF EXAM: 05/21/2021 COMPARISON: 06/15/2015 HISTORY: Check tube placement TECHNIQUE: Single view FINDINGS: There is nasogastric tube with the tip well into the stomach. There is pulmonary hyperinfla tion with flattening of the diaphragm. Heart size is normal. Thoracic aorta is atheromatous. There ar e chest leads. IMPRESSION: COPD. Normal heart. Pulmonary hyperinflation increased compared to old exam.
--- NOTE | 2021-05-21 17:33 | ECHOF ---
Referral Reason:CVA MEASUREMENTS -------- HEIGHT: 139.7 cm WEIGHT: 34.0 kg BP: 163/85 RVIDd: 2.7 cm (< 3.3) IVSd: 1.2 cm (0.6 - 1.1) LVIDd: 2.5 cm (3.9 - 5.3) LVPWd: 1.2 cm (0.6 - 1.1) IVSs: 1.4 cm LVIDs: 1.7 cm LVPWs: 1.4 cm LA Diam: 2.0 cm (2.7 - 3.8) Ao Diam: 2.6 cm (2.0 - 3.7) AV Cusp: 1.7 cm (1.5 - 2.6) MV EXCURSION: 12.169 mm (> 18.000) MV EF SLOPE: 29 mm/s (70 - 150) EPSS: 0.4 cm RAP: 5.00 mmHg RVSP: 39.38 mmHg FINDINGS -------- Sinus rhythm. This was a technically adequate study. The left ventricular size is normal. There is borderline concentric left ventricular hypertrophy. Overall left ventricular systolic function is normal with, an EF between 60 - 65 %. The right ventricle is normal in size. The left atrium is normal in size. The right atrium is normal in size. Aneurysmal Interatrial septum. Aortic valve is trileaflet and is mildly thickened. The mitral valve is normal. Mild tricuspid regurgitation present. There is mild pulmonary hypertension. The right ventricular systolic pressure, as measured by Doppler, is 39.38mmHg. Trace/mild (physiologic) pulmonic regurgitation. The aortic root size is normal. Normal inferior vena cava with normal inspiratory collapse consistent with estimated right atrial pre ssure of 5 mmHg. There is no pericardial effusion. CONCLUSIONS -------- 1. The left ventricular size is normal. 2. There is borderline concentric left ventricular hypertrophy. 3. Overall left ventricular systolic function is normal with, an EF between 60 - 65 %. 4. Aneurysmal Interatrial septum. 5. Aortic valve is trileaflet and is mildly thickened. 6. Mild tricuspid regurgitation present. 7. There is mild pulmonary hypertension. 8. The right ventricular systolic pressure, as measured by Doppler, is 39.38mmHg. 9. Trace/mild (physiologic) pulmonic regurgitation. 10. There is no pericardial effusion. ESTIMATOR BINDING: Kalyani Sanhdu RDCS
[2021-05-21] MEDS ORDERED: ATORVASTATIN 40 MG TAB PO SCH (21:00)
[2021-05-21] MEDS: ATORVASTATIN 80 MG TAB PO SCH (21:33)
[2021-05-21] MEDS: MIRTAZAPINE 15 MG TAB PO SCH (21:33)
[2021-05-21 23:52] LABS: Folate, Serum >24.0 ng/mL
[2021-05-22 00:05] LABS: Hemoglobin A1C 6.2 % (4.0-6.0)
[2021-05-22 00:25] LABS: Protein, Total 6.7 g/dL (6.2-8.2)
[2021-05-22] MEDS: PANTOPRAZOLE 40 MG TABLET PO SCH (07:10)
[2021-05-22] MEDS: FORMOTEROL FUMARATE 20 MCG/2 ML NEBU INHALATION SCH ×2 (07:51→18:26)
[2021-05-22] MEDS: IPRATROPIUM 0.5 MG/2.5 ML NEBU INHALATION SCH ×4 (07:51→18:26)
[2021-05-22 08:34] LABS: Reticulocyte % 1.9 % (0.5-2.0)
[2021-05-22 08:42] LABS: Anisocytosis Moderate; Basophils % (A) 0 %; Eosinophils % (A) 0 %; HCT 43.3 % (34.0-46.0); HGB 13.1 gm/dL (11.4-16.0); Hypochromasia Marked; Lymphocytes # (A) 0.9 k/uL (1.0-4.8); Lymphocytes % (A) 7 %; MCH 24.5 pg (25.0-35.0); MCHC 30.3 g/dL (31.0-37.0); MCV 80.7 fL (80.0-100.0); Microcytosis Moderate; Monocytes # (A) 0.9 k/uL (0-1.0); Monocytes % (A) 6 %; Neutrophils # (A) 12.1 k/uL (1.3-7.7); Neutrophils % (A) 85 %; Platelet Count 220 k/uL (150-450); Poikilocytosis Marked; RBC 5.36 m/uL (3.80-5.40); RDW 22.2 % (11.5-15.5); WBC 14.3 k/uL (3.8-10.6)
[2021-05-22] MEDS: ASPIRIN 81 MG PO SCH (08:51)
[2021-05-22] MEDS: CLOPIDOGREL 75 MG TAB PO SCH (08:51)
[2021-05-22 08:54] LABS: ALT 7 U/L (4-34); AST 24 U/L (14-36); African American GFR (CKD) >90 (>60 ml/min/1.73 sqM); Alkaline Phosphatase 97 U/L (38-126); Anion Gap 7 mmol/L; Bilirubin, Delta 0.4 mg/dL (0.0-0.2); Bilirubin,Unconjugated 0.9 mg/dL (0.0-1.1); Blood Urea Nitrogen 9 mg/dL (7-17); Calcium 9.2 mg/dL (8.4-10.2); Carbon Dioxide 33 mmol/L (22-30); Chloride 106 mmol/L (98-107); Glucose 68 mg/dL (74-99); Magnesium 1.9 mg/dL (1.6-2.3); Non-African American GFR(CKD) >90 (>60 ml/min/1.73 sqM); Phosphorus 2.6 mg/dL (2.5-4.5); Potassium 3.3 mmol/L (3.5-5.1); Sodium 146 mmol/L (137-145); Total Bilirubin 1.3 mg/dL (0.2-1.3); Total Protein 5.6 g/dL (6.3-8.2)
[2021-05-22] MEDS ORDERED: Potassium Replacement Protocol 1 EACH MISC MISCELLANE PRN (09:40)
[2021-05-22] MEDS ORDERED: LACTATED RINGERS 1,000 ML IV SCH ×2 (09:45)
[2021-05-22] MEDS: POTASSIUM CHLORIDE 10 MEQ in WATER FOR INJECTION 1 100ML.BAG IVPB SCH ×4 (10:00→12:54)
--- NOTE | 2021-05-22 10:27 | P.PN ---
Subjective Progress Note Date: 05/22/21 Pt is interactive with me this morning. Sometimes has appropriate responses, sometimes does not. Pulled her NGT for enteral feeding out yesterday due to confusion. I discussed nutrition with her daughter over the phone and difference in prognosis should she be able to tolerate a diet without aspiration versus if she could not. Objective - Vital Signs Vital signs: Vital Signs Temp 98.9 F 05/22/21 07:41 Pulse 84 05/22/21 08:10 Resp 18 05/22/21 08:00 BP 170/81 05/22/21 07:41 Pulse Ox 99 05/22/21 07:41 Intake & Output 05/21/21 05/22/21 05/22/21 18:59 06:59 18:59 Intake Total 0 30 Balance 0 30 Weight 34.246 kg 30 kg Intake: Oral 0 Tube Feeding 30 Other: Voiding Method Incontinent Incontinent Incontinent # Voids 0 1 - Exam Gen: awake, cooperative with exam HEENT: normocephalic, atraumatic, good hearing acuity, moist mucous membranes Resp: good air exchange, breathing comfortably with no accessory muscle use CVS: good distal perfusion x 4, GI: soft, NTTP, ND : no SPT, no CVAT, coppola catheter not present MSK: no pitting edema, no clubbing Neuro: expressive aphasia, diminished UE/LE strength on R> L side - Labs CBC & Chem 7: 05/22/21 07:57 05/22/21 07:57 Labs: Abnormal Lab Results - Last 24 Hours (Table) 05/21/21 05/21/21 05/21/21 Range/Units 07:20 07:20 08:32 WBC (3.8-10.6) k/uL MCH (25.0-35.0) pg MCHC (31.0-37.0) g/dL RDW (11.5-15.5) % Neutrophils # (1.3-7.7) k/uL Lymphocytes # (1.0-4.8) k/uL Sodium 146 H (137-145) mmol/L Potassium (3.5-5.1) mmol/L Carbon Dioxide 33 H (22-30) mmol/L Creatinine 0.40 L (0.52-1.04) mg/dL Glucose (74-99) mg/dL Hemoglobin A1c 6.2 H (4.0-6.0) % Iron 353 H (50-170) ug/dL % Saturation 95.92 H (12.00-45.00) Total Bilirubin 1.5 H (0.2-1.3) mg/dL Delta Bilirubin (0.0-0.2) mg/dL Total Protein 6.2 L (6.3-8.2) g/dL Albumin 3.3 L (3.5-5.0) g/dL Vitamin B12 1402.0 H (200.0-944.0) pg/mL 05/22/21 05/22/21 Range/Units 07:57 07:57 WBC 14.3 H (3.8-10.6) k/uL MCH 24.5 L (25.0-35.0) pg MCHC 30.3 L (31.0-37.0) g/dL RDW 22.2 H (11.5-15.5) % Neutrophils # 12.1 H (1.3-7.7) k/uL Lymphocytes # 0.9 L (1.0-4.8) k/uL Sodium 146 H (137-145) mmol/L Potassium 3.3 L (3.5-5.1) mmol/L Carbon Dioxide 33 H (22-30) mmol/L Creatinine 0.40 L (0.52-1.04) mg/dL Glucose 68 L (74-99) mg/dL Hemoglobin A1c (4.0-6.0) % Iron (50-170) ug/dL % Saturation (12.00-45.00) Total Bilirubin (0.2-1.3) mg/dL Delta Bilirubin 0.4 H (0.0-0.2) mg/dL Total Protein 5.6 L (6.3-8.2) g/dL Albumin 3.0 L (3.5-5.0) g/dL Vitamin B12 (200.0-944.0) pg/mL Assessment and Plan Assessment: Acute left MCA infarct -Patient not a candidate for TPA -Neurology consulted -Neuro checks -ASA, Lipitor and Plavix -Fall precautions -PT/OT consult -MR Brain = large acute posterior frontal lobe cortical infarct, left parietal lobe acute infarct, possible left occipital love. Old infarct in left temporal lobe. -Echo = EF 60-65%, borderline concentric LVH, mild pHTN/RVSP elevation -Speech and swallow evaluation, pending -Video swallow pending -GoC conversation pending results of video swallow and [employer] eval. -Permissive hypertension Microcytic anemia which was overestimated due to lab error, s/p 3U PRBC transfusion, now in normal range -Fecal occult negative at [facility] -Obtain anemia workup = B12 - 1402, Folate > 24, TSH 1.71, Iron 353, TIBC - 368, %Sat - 95.92, Ftn - 11.4. -Hematology consulted -GI consulted Chronic conditions: COPD -Continue with home meds DVT prophylaxis -IPCDs The patient is admitted with an anticipated greater than 2 midnight stay for evaluation of acute CVA CODE STATUS: No Code w/ instructions Anticipated discharge date: 3-[address]: [facility]
[2021-05-22] MEDS: DEXTROSE 5%-LACTATED RINGERS 1,000 ML IV SCH (10:30)
[2021-05-22 11:39] LABS: Chol/HDL Ratio 2.49; LDL Cholesterol,Calculated 48.6 mg/dL (0.0-131.0); VLDL Calculation 18.4 mg/dL (5.00-40.00)
--- NOTE | 2021-05-22 12:41 | PN ---
PROGRESS NOTE DATE OF SERVICE: 05/22/2021. HISTORY: The patient is a 80-year-old pleasant white female admitted to the hospital with right- sided weakness and left MCA stroke. When she came to the emergency room with altered mental status she was noted to have a hemoglobin of 3.6. She received 3 units of PRBC transfusion and surprisingly her hemoglobin went up to 13.6 g/dL. The patient remains very confused currently, she does not respond appropriately. As per the nursing staff she did not have any active bleeding. PHYSICAL EXAMINATION: GENERAL: She appears comfortable. VITAL SIGNS: Stable. Blood pressure is 144/86, pulse rate 88, afebrile. HEENT: Examination unremarkable. Conjunctivae pink. Sclerae anicteric. Oral cavity no lesions. NECK: No JVD or lymph node enlargement. CHEST: Decreased breath sounds bilaterally. HEART: Regular rate and rhythm. ABDOMEN: Soft, it was scaphoid. No organomegaly. EXTREMITIES: No pedal edema. NEURO: Very confused. LABS: From today WBC 14, hemoglobin 13.6, platelets normal. Iron indices serum iron is 353, TIBC 368, iron saturation 95%, ferritin is 11, vitamin B12 is 1402. IMPRESSION: 1. Severe anemia status post 2 units of PRBC transfusion hemoglobin jumped from 3.6- 13.6 g/dL. Clinically no active GI bleed. Iron studies did show ferritin to be low, but iron saturation 95%. It appears and most likely she may have iron deficiency anemia. Attempted EGD and colonoscopy by Dr. Burnett in 2013 and the scope could not be advanced beyond the sigmoid colon. 2. CVA with right-sided hemiparesis. Neurology following the patient. 3. History of hypertension and hyperlipidemia. RECOMMENDATIONS: 1. Continue with aspirin and Plavix. 2. Monitor CBC daily. 3. Given her overall medical condition, she is not a good candidate for any endoscopic intervention at the present time. For now, we will continue to follow her closely. Thank you for this consultation. MMODL / IJN: [id number] /
[2021-05-22] MEDS ORDERED: HALOPERIDOL LACTATE 5 MG/ML 1 ML VIAL IVP STA (14:23)
[2021-05-22] MEDS: MIRTAZAPINE 15 MG TAB PO SCH (19:40)
[2021-05-22] MEDS: ATORVASTATIN 80 MG TAB PO SCH (19:40)
--- NOTE | 2021-05-23 00:46 | P.PN ---
Subjective Progress Note Date: 05/22/21 Patient was seen via Tele-neurology today on 05/22/2021. Patient's one of the daughter was also present today. Patient actually lives with the other daughter who was not present. Patient's daughter states that patient has been having decreased ambulation over time. For the last 1 year patient not able to walk significantly. She may walk with a walker from bedroom to the kitchen. Patient at baseline is able to get up from the bed, and with a walker able to transfer to the chair or potty chair. However she has lost this mobility since Sunday. Patient's daughter states that she is able to speak certain phrases like "I want to go home". She may say "wait a minute", or "how are you". Objective - Vital Signs Vital signs: Vital Signs Temp 97.6 F 05/22/21 20:00 Pulse 76 05/23/21 00:00 Resp 16 05/23/21 00:00 BP 150/70 05/23/21 00:00 Pulse Ox 97 05/23/21 00:00 Intake & Output 05/22/21 05/22/21 05/23/21 06:59 18:59 06:59 Intake Total 30 560 Balance 30 560 Weight 30 kg Intake: Intake, IV Titration 560 Amount Dextrose 5%-Lactated 560 Ringers 1,000 ml @ 70 mls /hr IV .[id number] [facility] Rx#: [id number] Oral 0 Tube Feeding 30 Other: Voiding Method Incontinent Incontinent Incontinent # Voids 1 - Exam On examination patient is alert and awake.Patient's daughter states that she is able to speak certain phrases like "I want to go home". She may say "wait a minute", or "how are you". Patient has global aphasia. Patient cannot name simple objects like ear, or thumb. She is not able to comprehend 1 step commands like pointing to the ceiling or window. She cannot repeat. Patient has right pronator drift. She has ataxia noticed on the right. She did not cooperate well. - Labs CBC & Chem 7: 05/22/21 07:57 05/22/21 07:57 Labs: Abnormal Lab Results - Last 24 Hours (Table) 05/22/21 05/22/21 Range/Units 07:57 07:57 WBC 14.3 H (3.8-10.6) k/uL MCH 24.5 L (25.0-35.0) pg MCHC 30.3 L (31.0-37.0) g/dL RDW 22.2 H (11.5-15.5) % Neutrophils # 12.1 H (1.3-7.7) k/uL Lymphocytes # 0.9 L (1.0-4.8) k/uL Sodium 146 H (137-145) mmol/L Potassium 3.3 L (3.5-5.1) mmol/L Carbon Dioxide 33 H (22-30) mmol/L Creatinine 0.40 L (0.52-1.04) mg/dL Glucose 68 L (74-99) mg/dL Delta Bilirubin 0.4 H (0.0-0.2) mg/dL Total Protein 5.6 L (6.3-8.2) g/dL Albumin 3.0 L (3.5-5.0) g/dL Assessment and Plan Assessment: * Acute ischemic stroke involving the left frontal lobe, (wedge-shaped), and also involving left posterior parietal region, and superior parasagittal re gion, somewhat in watershed territory. Patient has presented with global aphasia and mild right hemiparesis. 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 * Right ICA stenosis, moderate to severe degree per CTA. * Severe anemia, with hemoglobin 3.6, unclear etiology. * Coronary artery disease * COPD * Hypertension * Hyperlipidemia * Osteoarthritis Plan: * MRI of the brain performed today shows large acute left posterior frontal lobe cortical infarct. There is small acute infarct left parietal lobe and probably left occipital lobe in the convexity. There is evidence of old infarct in the left posterior temporal lobe. There is extensive white matter changes consistent with chronic small vessel ischemia. Demyelinating disease not excluded. Multiple infarcts in the cortex, new compared to old MRI scan of 06/09/2010. * Await vascular surgical consultation for her left ICA occlusion and moderate to severe stenosis right side. * Patient has been seen by hematology and GI. Her hemoglobin is stable, 13.1 as of today. * Hemoglobin A1c 6.2 * 2-D echo revealed normal left-ventricular size. Borderline concentric LVH, EF is between 60-65%. Aneurysmal interatrial septum. The aortic valve is trileaflet and is mildly thickened. * Lipid panel with cholesterol 112, LDL 48.6, HDL 45, triglycerides 92. Patient on high-dose Lipitor 80 mg. * Patient now on dual antiplatelet medication including aspirin 81 mg and Plavix 75 mg daily. * Dr. Andrew Clark Will resume neurology service from the morning.
[2021-05-23 03:50] VITALS: TEMP 97.9
[2021-05-23] MEDS: PANTOPRAZOLE 40 MG TABLET PO SCH (05:19)
[2021-05-23] MEDS: DEXTROSE 5%-LACTATED RINGERS 1,000 ML IV SCH (05:19)
[2021-05-23 07:58] LABS: Anisocytosis Moderate; Basophils % (A) 0 %; Eosinophils # (A) 0.2 k/uL (0-0.7); Eosinophils % (A) 1 %; HGB 12.6 gm/dL (11.4-16.0); Hypochromasia Marked; Lymphocytes # (A) 1.3 k/uL (1.0-4.8); Lymphocytes % (A) 9 %; MCH 24.8 pg (25.0-35.0); MCHC 30.6 g/dL (31.0-37.0); MCV 81.1 fL (80.0-100.0); Mean Platelet Volume 11.4; Microcytosis Moderate; Monocytes # (A) 0.9 k/uL (0-1.0); Monocytes % (A) 6 %; Neutrophils # (A) 11.8 k/uL (1.3-7.7); Neutrophils % (A) 82 %; Platelet Count 195 k/uL (150-450); Poikilocytosis Marked; RBC 5.06 m/uL (3.80-5.40); RDW 23.4 % (11.5-15.5); WBC 14.4 k/uL (3.8-10.6)
[2021-05-23] MEDS: IPRATROPIUM 0.5 MG/2.5 ML NEBU INHALATION SCH (07:59)
[2021-05-23] MEDS: FORMOTEROL FUMARATE 20 MCG/2 ML NEBU INHALATION SCH (07:59)
[2021-05-23 08:20] LABS: African American GFR (CKD) >90 (>60 ml/min/1.73 sqM); Anion Gap 2 mmol/L; Blood Urea Nitrogen 4 mg/dL (7-17); Carbon Dioxide 34 mmol/L (22-30); Chloride 104 mmol/L (98-107); Glucose 98 mg/dL (74-99); Non-African American GFR(CKD) >90 (>60 ml/min/1.73 sqM); Sodium 140 mmol/L (137-145)
[2021-05-23 08:22] LABS: Magnesium 1.6 mg/dL (1.6-2.3); Phosphorus 2.1 mg/dL (2.5-4.5); Potassium 3.3 mmol/L (3.5-5.1)
[2021-05-23] MEDS ORDERED: LORazepam 2 MG/ML INJ IM STA (10:02)
[2021-05-23] MEDS ORDERED: LORazepam 2 MG/ML INJ ONE (10:03)
[2021-05-23] MEDS ORDERED: levETIRAcetam IV 500 MG in SODIUM CHLORIDE 0.9% 100 ML IVPB STA ×2 (10:03→10:15)
[2021-05-23] MEDS ORDERED: LORazepam 2 MG/ML INJ IV STA ×2 (10:08→10:28)
[2021-05-23] MEDS: LORazepam 2 MG/ML INJ IV STA ×2 (10:15→11:00)
[2021-05-23] MEDS ORDERED: MORPHINE SULFATE 4 MG/ML SYRINGE IVP STA (10:27)
[2021-05-23] MEDS ORDERED: LORazepam 2 MG/ML INJ IV PRN (10:28)
[2021-05-23] MEDS ORDERED: MORPHINE SULFATE 4 MG/ML SYRINGE IV PRN (10:28)
[2021-05-23] MEDS: MORPHINE SULFATE 4 MG/ML SYRINGE ONE ×2 (10:31→17:40)
[2021-05-23 10:41] LABS: Glucose,Whole Blood 119 mg/dL (75-99)
[2021-05-23] MEDS ORDERED: LORazepam Vial 25 MG in DEXTROSE 5% IN WATER 238 ML IV SCH ×2 (10:45)
[2021-05-23 10:56] VITALS: BP 139/60
[2021-05-23] MEDS: MORPHINE SULFATE (100 MG/2 ML) 100 MG in SODIUM CHLORIDE 0.9% 100 ML IV SCH ×2 (11:11→20:35)
--- NOTE | 2021-05-23 11:21 | CDI ---
Documentation Clarification Form Date: 05/23/2021 11:07:32 AM From: Mariana Saucedo CCS, CCDS Admit Date: 05/20/2021 07:58:00 PM Patient Name: Yuliya Streeter Visit Number: [id number] Discharge Date: ATTENTION: The Clinical Documentation Specialists (CDI) and [facility] Coding Staff appreciate your assistance in clarifying documentation. Please respond to the clarification below the line at the bottom and electronically sign. The CDI & [facility] Coding staff will review the response and follow-up if needed. Please note: Queries are made part of the Legal Health Record. If you have any questions, please contact the author of this message via ITS. Dr. Michael Alarcon: Per the 05/20 H/P, the patient's general appearance: non toxic, no distress, appears stated age (80), frail. Per the Bed Scale weight: 30 kg w/BMI: 12.1 Based on this information and the findings below, is there an additional diagnosis that is clinically appropriate for this patient? History/Risk Factors per the 05/20 H/P: Angina, COPD, GERD, Hyperlipidemia, Hypertension, OA, Sciatica, Poor circulation to lower legs, history of a fractured pelvis, Dementia. Clinical Indicators: Presented to the ED on 05/20 as a transfer from [facility] with altered mental status and anemia. CT at [facility]: Acute left MCA infarct. 05/20 VS: T 97.8, P 82, R 18, BP 147/86, PO 98 2Lnc 05/20 LAB: Hgb 3.6, Hct 14.6, Total Protein 6.2, Albumin 3.3 05/20 BMI: 12.1 05/21 Nursing BMI: 13.8 05/21 Weight 34.246 kg, Height 5 ft 2 in. IBW: 50 kg, @ 68% of IBW. Nursing Nutritional Assessment: Poor appetite x1-3 months, taking only clear liquids, Nutrition intake: poor, 0% consumed, difficulty swallowing, underfeeding, underweight. Treatment: Neuro assessments, Fall prevention, Telemetry, Arreola Catheter, NGT, O2 2Lnc, Transfused PRBCs: 2 units 05/20, 1 unit 05/21. 8/1: IV Lactated Ringers 1,000 mls @ 70 mls/hr q14H, IV KCL 100 mls @ 100 mls/hr q1H, IV Haldol, IM Ativan. 05/23: IV Keppra, IV Ativan. 05/20 Swallow Screen: Failed. Is there an additional diagnosis that is clinically appropriate for this patient? [ ] Mild Protein-Calorie Malnutrition [ ] Moderate Protein-Calorie Malnutrition [ ] Severe Protein-Calorie Malnutrition [ ] Other condition, please specify [ ] Unable to Determine (Template Last Revised: December 2020) Severe protein calorie malnutrition. MTDD
[2021-05-23] MEDS: ASPIRIN 81 MG PO SCH (11:46)
[2021-05-23] MEDS: CLOPIDOGREL 75 MG TAB PO SCH (11:46)
[2021-05-23] MEDS ORDERED: ACETAMINOPHEN SUPPOSITORY 650 MG SUPP RECTAL PRN (11:47)
[2021-05-23] MEDS ORDERED: ATROPINE OPHTH SOLN 1% 5ML BTL SUBLINGUAL PRN (11:47)
[2021-05-23 12:33] VITALS: BMI 12.1
[2021-05-23 12:56] LABS: Free Kappa Lt Chain Qnt, Serum 1.78 mg/dL (0.33-1.94)
[2021-05-23 14:56] LABS: Albumin 3.38 g/dL (3.80-4.90); Gamma Globulin 0.94 g/dL (0.70-1.50)
--- NOTE | 2021-05-23 18:24 | P.PN ---
Progress Note - Text Progress Note Date: 05/23/21 80-year-old woman with medical history of COPD, severe protein calorie malnutrition, dementia presented 2 days ago with symptoms of expressive aphasia and right hemiparesis who was found to have an acute left MCA infarct in the frontal lobe, parietal lobe and possibly left occipital lobe. Today, we are called the patient bedside for a rapid response due to seizure-like activity. Upon evaluation, patient was having left-sided tonic-clonic movements, mentation had completely diminished to being unresponsive to verbal stimuli and she was earlier in the day and overnight/throughout this hospitalization. Patient was afebrile, stable blood pressure, however, heart rate was in the 180s. Patient had received 2 mg of Ativan prior to my arrival. During my evaluation, will provide an additional 2 mg of Ativan, followed by 4 mg of Ativan, followed by 500 mg Keppra. Unfortunately, even with high levels of benzodiazepine as well as Keppra, patient seizures were not able to be controlled. Daughter was at bedside, and we had a discussion regarding patient's poor prognosis in the setting of seizures or imposed on acute MCA stroke in the background of patient having cachexia and severe protein calorie malnutrition as well as inability to swallow and protect her airway as a consequence of the strokes. Patient's daughter agreed that patient was hospice appropriate and that further aggressive treatment such as intubation would not be within patient's goals of care. Therefore, patient was transitioned to hospice care. Plan: Patient was started on Ativan drip to control seizures at 4mg/h with the plan to up titrate 1 mg/h every 10 minutes until seizures were controlled. She was started on a morphine drip for hypoxia, air hunger, and provided 4 mg morphine push as loading dose. I spent approximately 65 minutes on this encounter, 45 minutes were critical care time, 20 minutes were [id number] advance care planning.
[2021-05-24] MEDS: MIRTAZAPINE 15 MG TAB PO SCH (00:26)
[2021-05-24] MEDS: MORPHINE SULFATE (100 MG/2 ML) 100 MG in SODIUM CHLORIDE 0.9% 100 ML IV SCH (13:24)
--- NOTE | 2021-05-24 16:44 | P.PN ---
Subjective Progress Note Date: 05/24/21 Pt is comfortable on morphine gtt. Family at bedside. Comfort measures in place. Objective - Vital Signs Vital signs: Vital Signs Temp 97.9 F 05/23/21 03:49 Pulse 87 05/24/21 08:00 Resp 10 L 05/24/21 08:00 BP 139/60 05/23/21 10:54 Pulse Ox 95 05/23/21 08:00 Intake & Output 05/23/21 05/24/21 05/24/21 18:59 06:59 18:59 Intake Total 17.581 39.576 101.812 Balance 17.581 39.576 101.812 Weight 30 kg 31.5 kg Intake: Intake, IV Titration 17.581 39.576 101.812 Amount Lactated Ringers 1,000 ml 40 @ 70 mls/hr IV .[id number] [facility] Rx#:[id number] Morphine Sulfate (100 mg/ 17.581 39.576 61.812 2 ml) 100 mg In Sodium Chloride 0.9% 100 ml @ 1 MG/HR 1.02 mls/hr IV . Q24H [facility] Rx#:[id number] Oral 0 Other: Voiding Method Incontinent Diaper Diaper # Voids 1 - Exam Gen: asleep, resting comfortably Resp: breathing comfortably, bradypneic CVS: tachycardic - Labs CBC & Chem 7: 05/23/21 07:25 05/23/21 07:25 Assessment and Plan Assessment: Acute left MCA infarct with Seizures Microcytic anemia which was overestimated due to lab error, s/p 3U PRBC transfusion, now in normal range Chronic conditions: COPD -Patient is on comfort measures with morphine gtt -Hospice consulted
[2021-05-25 00:01] VITALS: PULSE 34; RESP 8
--- NOTE | 2021-05-25 11:57 | P.DS ---
Providers Date of admission: 05/20/21 19:58 Expected date of discharge: 05/25/21 Attending physician: Michael Alarcon MD Primary care physician: Rommel Neal MD Hospital Course: Patient from complications of Left ischemic stroke with seizures. History of smoking contributed to cerebrovascular disease. Plan - Discharge Summary Discharge Rx Participant: No New Discharge Prescriptions: No Action Aspirin 81 mg PO DAILY HYDROcodone/APAP 10-325MG [Jennings 10-325] 1 tab PO Q8H PRN PRN Reason: Pain Cholecalciferol [Vitamin D3 (25 Mcg = 1000 Iu)] 125 mcg PO DAILY Naloxone HCl [Narcan] 4 mg NASAL ONCE PRN PRN Reason: overdose Metoprolol Succinate [Toprol XL] 25 mg PO BID Glycopyrrolate/Formoterol Fum [Bevespi Aerosphere Inhaler] 2 puff INHALATION RT-BID Gabapentin 600 mg PO TID Cyanocobalamin (Vitamin B-12) [Vitamin B-12] 1,000 mcg PO DAILY Mirtazapine [Remeron] 15 mg PO HS Citalopram Hydrobromide [CeleXA] 40 mg PO DAILY Atorvastatin Calcium [Lipitor] 10 mg PO HS Omeprazole 40 mg PO DAILY Discharge Medication List Aspirin 81 mg PO DAILY 03/17/14 [History] HYDROcodone/APAP 10-325MG [Jennings 10-325] 1 tab PO Q8H PRN 01/10/15 [History] Cholecalciferol [Vitamin D3 (25 Mcg = 1000 Iu)] 125 mcg PO DAILY 06/15/15 [History] Atorvastatin Calcium [Lipitor] 10 mg PO HS 05/20/21 [History] Citalopram Hydrobromide [CeleXA] 40 mg PO DAILY 05/20/21 [History] Cyanocobalamin (Vitamin B-12) [Vitamin B-12] 1,000 mcg PO DAILY 05/20/21 [History] Gabapentin 600 mg PO TID 05/20/21 [History] Glycopyrrolate/Formoterol Fum [Bevespi Aerosphere Inhaler] 2 puff INHALATION RT- BID 05/20/21 [History] Metoprolol Succinate [Toprol XL] 25 mg PO BID 05/20/21 [History] Mirtazapine [Remeron] 15 mg PO HS 05/20/21 [History] Naloxone HCl [Narcan] 4 mg NASAL ONCE PRN 05/20/21 [History] Omeprazole 40 mg PO DAILY 05/21/21 [History] Follow up Appointment(s)/Referral(s): Rommel Neal MD [Primary Care Provider] - 1-2 days Discharge Disposition: - Preliminary Cause of Preliminary Cause of : Left Ischemic Stroke and Seizures
== END 2021-05-24 23:25 | disposition expired | DRG 64 ==
LOC: EC 17:17 → 2SICU 19:58 → 3SCARD 05-21 09:56 → 3NCARDOBS 05-23 23:07 → 3SCARD 05-23 23:07
PROVIDERS: ADMIT Internal Medicine; ATTEND Internal Medicine
PROC: 30233N1 Transfusion of Nonautologous Red Blood Cells into Peripheral Vein, Percutaneous Approach (ICD-10-PCS; principal; 2021-05-20)
DX: I63.512 Cerebral infarction due to unspecified occlusion or stenosis of left middle cerebral artery (principal); E43 Unspecified severe protein-calorie malnutrition; Z68.1 Body mass index [BMI] 19.9 or less, adult; G81.91 Hemiplegia, unspecified affecting right dominant side; R64 Cachexia; D50.9 Iron deficiency anemia, unspecified; E78.5 Hyperlipidemia, unspecified; F03.90 Unspecified dementia, unspecified severity, without behavioral disturbance, psychotic disturbance, mood disturbance, and anxiety; I10 Essential (primary) hypertension; I25.10 Atherosclerotic heart disease of native coronary artery without angina pectoris; I65.23 Occlusion and stenosis of bilateral carotid arteries; J44.9 Chronic obstructive pulmonary disease, unspecified; R56.9 Unspecified convulsions; R47.01 Aphasia; R27.0 Ataxia, unspecified; R47.02 Dysphasia; K57.30 Diverticulosis of large intestine without perforation or abscess without bleeding; M19.90 Unspecified osteoarthritis, unspecified site; Z51.5 Encounter for palliative care; Z66 Do not resuscitate; R32 Unspecified urinary incontinence; K59.00 Constipation, unspecified; G43.909 Migraine, unspecified, not intractable, without status migrainosus; R09.02 Hypoxemia; Z74.01 Bed confinement status; Z79.82 Long term (current) use of aspirin; Z79.899 Other long term (current) drug therapy; Z80.9 Family history of malignant neoplasm, unspecified; Z82.49 Family history of ischemic heart disease and other diseases of the circulatory system; Z98.890 Other specified postprocedural states; Z88.1 Allergy status to other antibiotic agents; Z88.5 Allergy status to narcotic agent; Z88.0 Allergy status to penicillin; Z87.81 Personal history of (healed) traumatic fracture; Z87.891 Personal history of nicotine dependence; Z86.73 Personal history of transient ischemic attack (TIA), and cerebral infarction without residual deficits
CPT/HCPCS: 36415; 70450; 70496; 70498; 70553; 71045; 80048; 80053; 80061; 80076; 82607; 82728; 82746; 82747; 83010; 83036; 83540; 83550; 83615; 83735; 83883; 84100; 84165; 84443; 85025; 85027; 85045; 86334; 86850; 86900; 86901; 86920; 93306; 94640; 94760; 99285